=== PATIENT | male | born 1955 | race African-American/Black ===

== ENCOUNTER 2018-02-15 21:56 | Emergency (ER) | payer SELFPAY ==
[~2018-02-15] VITALS: Ht 172.7 cm; Wt 75.7 kg
[~2018-02-15 21:56] MED LIST: OXYCODONE-ACET1 EAC3 ORAL; RISPERDAL0.25 MG ORAL
[2018-02-15 22:04] VITALS: BP 142/91
[2018-02-15] MEDS ORDERED: Ketorolac 60mg Inj IM ONE (22:45)
[2018-02-15] MEDS ORDERED: Methocarbamol 750mg tab ORAL ONE (22:45)
[2018-02-15] MEDS ORDERED: IBUPROFEN600 MG ORAL (23:11)
[2018-02-15] MEDS ORDERED: ROBAXIN-750750 MG PO (23:11)
[2018-02-15 23:14] VITALS: BP 136/92
[2018-02-15 23:27] VITALS: BP 136/92
--- NOTE | 2018-02-16 00:29 | Emergency Room Report ---
History of Present Illness General Chief Complaint: Lower Back Pain or Injury Source: Patient, EMS Present Illness HPI Patient presents with reports exacerbation of his low back pain Patient reports that his left hip is subluxed compared to his right hip Reports that he takes Robaxin and Benadryl He has also started to smoke marijuana considered taking oxycodone He reports that he was walking more than usual and has flared up his back pain Denies any fevers denies any recent trauma Denies any neuropathy Denies any loss of control of bowel/urination Allergies: Coded Allergies: MORPHINE (Verified Allergy, Mild, 02/15/18) Patient History Past Medical History: see triage record Pertinent Family History: none Reviewed Nursing Documentation: PMH: Agreed; PSxH: Agreed Nursing Documentation-PMH Hx Hypertension: Yes Hx Diabetes: Yes Hx Neurological Problems: Yes - 3 herniated disc, cyatica, neuropathy Review of Systems All Other Systems: negative except mentioned in HPI Physical Exam Vital Signs Date Time Temp Pulse Resp B/P (MAP) Pulse Ox O2 Delivery O2 Flow Rate FiO2 02/15/18 21:39 98.2 90 16 144/92 99 Room Air Sp02 EP Interpretation: reviewed, normal General Appearance: well appearing, no apparent distress Head: normocephalic, atraumatic Eyes: bilateral eye PERRL, bilateral eye EOMI ENT: normal pharynx, no angioedema Neck: supple Respiratory: lungs clear Cardiovascular #1: regular rate, rhythm, no edema Gastrointestinal: non tender, soft Musculoskeletal: other - Patient moving all extremities equally able to stand, had some discomfort on paraspinal L3 L4 bilaterally no midline step-off Neurologic: alert, oriented x3, responsive, other - Sensory is intact Skin: normal color, no rash Lymphatic: no adenopathy Medical Decision Making Diagnostic Impression: Primary Impression: Low back pain ER Course Patient appears to have an acute exacerbation of a chronic back pain Differentials for neurological, neurosurgical, orthopedic differentials are considered however patient has sensory intact there was no other recent trauma patient is afebrile and stable for close outpatient follow-up Last Vital Signs Date Time Temp Pulse Resp B/P (MAP) Pulse Ox O2 Delivery O2 Flow Rate FiO2 02/15/18 23:27 98.2 65 16 136/92 99 Room Air Status: improved Disposition: HOME, SELF-CARE Condition: Improved Scripts Methocarbamol* (ROBAXIN-750*) 750 Mg Tablet 750 MG PO TID, #21 TAB 0 Refills Prov: Héctor Ojeda DO 02/15/18 Ibuprofen* (MOTRIN*) 600 Mg Tablet 600 MG ORAL Q8H PRN for For Pain, #20 TAB 0 Refills Prov: Héctor Ojeda DO 02/15/18 Referrals: NOT CHOSEN IPA/MD,REFERRING (PCP) Patient Instructions: Back Pain, Adult Additional Instructions: Patient is provided with the discharge instructions notified to follow up with primary doctor in the next 2-3 days otherwise return to the er with any worsening symptoms. Please note that this report is being documented using [employer] technology. This can lead to erroneous entry secondary to incorrect interpretation by the dictating instrument. Héctor Ojeda DO Feb 16, 2018 00:29
== END 2018-02-15 23:14 | disposition home or self-care (01) ==
LOC: EDBD 21:56 → EMR 22:10
DX: M54.5 Low back pain (principal); S73.002A Unspecified subluxation of left hip, initial encounter; X50.9XXA Other and unspecified overexertion or strenuous movements or postures, initial encounter; G89.29 Other chronic pain; Y92.89 Other specified places as the place of occurrence of the external cause; I10 Essential (primary) hypertension; E11.9 Type 2 diabetes mellitus without complications; F17.200 Nicotine dependence, unspecified, uncomplicated; F12.90 Cannabis use, unspecified, uncomplicated; Z88.5 Allergy status to narcotic agent
CPT/HCPCS: 96372; 99283